=== PATIENT | female | born 1965 | race Caucasian/White ===

== ENCOUNTER 2024-04-23 01:04 | Inpatient (IN) | payer BC ==
[~2024-04-23] VITALS: Ht 144.8 cm; Wt 59.4 kg
[2024-04-23] VITALS (7 sets, daily range): BP systolic 111–166; PULSE 72–90; RESP 16–20; TEMP 97.2–98.7; O2SAT 95–98
[2024-04-23 02:15] LABS: ALANINE AMINOTRANSFERASE 43 U/L (12-78); ALBUMIN 3.8 g/dL (3.4-4.8); ANION GAP 11 (5-15); ASPARTATE AMINOTRANSFERASE 30 U/L (10-37); CALCIUM 8.9 mg/dL (8.4-11.0); CARBON DIOXIDE 24 mmol/L (23-29); CHLORIDE 106 mmol/L (98-107); CREATININE 1.02 mg/dL (0.55-1.30); GFR AFRICAN AMERICAN 71 mL/min (>90); GLUCOSE 107 mg/dL (74-106); POTASSIUM 3.6 mmol/L (3.5-5.1); SODIUM SERUM 141 mmol/L (136-145); TOTAL BILIRUBIN 0.4 mg/dL (0.0-1.0); TOTAL PROTEIN, SERUM 7.6 g/dL (6.4-8.3); UREA NITROGEN, BLOOD 23 mg/dL (8-21)
[2024-04-23 02:17] LABS: BILIRUBIN,DIRECT 0.1 mg/dL (0.0-0.3)
[2024-04-23 02:19] LABS: GFR NON AFRICAN-AMERICAN 59 mL/min (>90)
[2024-04-23 02:19] LABS: BASOPHILS # (AUTO) 0.1 K/uL (0.0-0.2); BASOPHILS % (AUTO) 0.8 % (0.0-2.0); EOSINOPHILS # (AUTO) 0.1 K/uL (0.0-0.4); EOSINOPHILS % (AUTO) 1.9 % (0.0-4.0); HEMATOCRIT 37.5 % (36-48); HEMOGLOBIN 13.5 g/dL (12.0-16.0); LYMPHOCYTES # (AUTO) 2.6 K/uL (1.0-5.5); LYMPHOCYTES % (AUTO) 38.8 % (20.5-51.5); MEAN CORPUSCULAR HEMOGLOBIN 33 pg (27-31); MEAN CORPUSCULAR HGB CONC 36 % (32-36); MEAN CORPUSCULAR VOLUME 92 fL (79.0-98.0); MONOCYTES # (AUTO) 0.7 K/uL (0.0-1.0); MONOCYTES % (AUTO) 9.6 % (1.7-9.3); NEUTROPHILS # (AUTO) 3.3 K/uL (1.8-7.7); NEUTROPHILS % (AUTO) 48.9 % (40.0-70.0); PLATELET COUNT (AUTO) 264 K/uL (130-430); RED BLOOD CELL COUNT(AUTO) 4.06 MIL/uL (4.2-6.2); WHITE BLOOD COUNT (AUTO) 6.8 K/uL (4.8-10.8)
[2024-04-23] MEDS: MORPHINE 4 MG INJ. 4 MG/ML VIAL IVP ONE ×2 (02:46→03:42)
[2024-04-23] MEDS: NITROGLYCERIN 1 INCH (GM) OINT. TP ONE ×2 (02:48→03:43)
[2024-04-23] MEDS ORDERED: MORPHINE 4 MG INJ. 4 MG/ML VIAL ONE (03:29)
[2024-04-23] MEDS ORDERED: NITROGLYCERIN 1 INCH (GM) OINT. ONE (03:29)
[2024-04-23 08:31] LABS: CHOLESTEROL 160 mg/dL (<200); HDL CHOLESTEROL 64 mg/dL (>55); TRIGLYCERIDES 43 mg/dL (30-150)
[2024-04-23] MEDS: LORazepam 1 MG TABLET PO ONE (11:28)
[2024-04-23] MEDS: ASPIRIN 81 MG TAB.CHEW PO ONE (11:29)
[2024-04-23] MEDS: ACETAMINOPHEN 500 MG TABLET PO PRN (16:13)
[2024-04-24 01:20] VITALS: BP_SYST 114; PULSE 83; RESP 14; TEMP 98.7; O2SAT 96
[2024-04-24 01:29] LABS: ALANINE AMINOTRANSFERASE 37 U/L (12-78); ALBUMIN 3.5 g/dL (3.4-4.8); ANION GAP 10 (5-15); ASPARTATE AMINOTRANSFERASE 25 U/L (10-37); CALCIUM 8.4 mg/dL (8.4-11.0); CARBON DIOXIDE 24 mmol/L (23-29); CHLORIDE 107 mmol/L (98-107); CREATININE 0.86 mg/dL (0.55-1.30); FREE T4 (FREE THYROXINE) 0.9 ng/dL (0.6-1.6); GFR AFRICAN AMERICAN 86 mL/min (>90); GLUCOSE 96 mg/dL (74-106); POTASSIUM 4.1 mmol/L (3.5-5.1); SODIUM SERUM 141 mmol/L (136-145); THYROID STIMULATING HORMONE 0.66 uIu/mL (0.34-4.82); TOTAL BILIRUBIN 0.6 mg/dL (0.0-1.0); UREA NITROGEN, BLOOD 19 mg/dL (8-21)
[2024-04-24 01:31] LABS: GFR NON AFRICAN-AMERICAN 71 mL/min (>90)
[2024-04-24 07:31] VITALS: BP_SYST 138; PULSE 90; RESP 14; TEMP 97.5; O2SAT 97
[2024-04-24 07:49] LABS: BASOPHILS % (AUTO) 0.4 % (0.0-2.0); EOSINOPHILS # (AUTO) 0.1 K/uL (0.0-0.4); EOSINOPHILS % (AUTO) 1.1 % (0.0-4.0); HEMATOCRIT 39.3 % (36-48); HEMOGLOBIN 13.3 g/dL (12.0-16.0); LYMPHOCYTES # (AUTO) 1.8 K/uL (1.0-5.5); LYMPHOCYTES % (AUTO) 25.6 % (20.5-51.5); MEAN CORPUSCULAR HEMOGLOBIN 32 pg (27-31); MEAN CORPUSCULAR HGB CONC 34 % (32-36); MEAN CORPUSCULAR VOLUME 95 fL (79.0-98.0); MONOCYTES # (AUTO) 0.5 K/uL (0.0-1.0); MONOCYTES % (AUTO) 7.3 % (1.7-9.3); NEUTROPHILS # (AUTO) 4.7 K/uL (1.8-7.7); NEUTROPHILS % (AUTO) 65.6 % (40.0-70.0); PLATELET COUNT (AUTO) 233 K/uL (130-430); RED BLOOD CELL COUNT(AUTO) 4.16 MIL/uL (4.2-6.2); RED CELL DISTRIBUTION WIDTH 13.1 % (9.0-15.0); WHITE BLOOD COUNT (AUTO) 7.1 K/uL (4.8-10.8)
[2024-04-24] MEDS: ASPIRIN 81 MG TAB.CHEW PO SCH (09:19)
[2024-04-24 09:34] VITALS: O2SAT 97
[2024-04-24 12:00] VITALS: BP_SYST 128; PULSE 99; RESP 16; TEMP 98.1; O2SAT 97
[2024-04-24 15:26] VITALS: BP_SYST 137; PULSE 99; RESP 20; TEMP 97.7; O2SAT 98
== END 2024-04-24 15:53 | disposition home or self-care (01) | DRG 313 ==
LOC: SED 01:04 → STU 03:44
PROVIDERS: ADMIT Internal Medicine; ATTEND Internal Medicine
DX: R07.89 Other chest pain (principal); I10 Essential (primary) hypertension; E78.5 Hyperlipidemia, unspecified; R73.03 Prediabetes
CPT/HCPCS: 36415; 71045; 80048; 80053; 80061; 80076; 83037; 83735; 83880; 84439; 84443; 84484; 85025; 85379; 93005; 93017; 93306; 96374; 99285; G0378; J2270